=== PATIENT | male | born 1945 | race Caucasian/White ===

== ENCOUNTER 2018-05-26 07:10 | Day surgery (SDC) | payer OTHER ==
[~2018-05-26 07:10] MED LIST: EXFORGE HCT 101 EAC2 PO; OXYC1TAB9 PO; RESTORA CAPSUL1 EACH PO; SYNTHROID125 MCG PO
== END 2018-05-26 12:35 | disposition home or self-care (01) ==
LOC: AMB-ENDOS 07:10
DX: D12.4 Benign neoplasm of descending colon (principal); K64.8 Other hemorrhoids